=== PATIENT | male | born 1995 ===

== ENCOUNTER 2018-11-15 17:10 | Emergency (ER) | payer OTHER ==
[2018-11-15 17:37] VITALS: BP 125/72; PULSE 60; RESP 18; TEMP 98; O2SAT 99
[2018-11-15] MEDS ORDERED: Naproxen 550 mg Tab PO STA (17:45)
[2018-11-15] MEDS ORDERED: Naproxen 550 mg Tab PO ONE (18:14)
--- NOTE | 2018-11-15 18:17 | C.PDOC ---
History Of Present Illness Pt injured his left middle finger while using a hammer at work. Time Seen by Provider: 11/15/18 17:39 Chief Complaint (Nursing): Finger,Hand,&Wrist History Per: Patient Onset/Duration Of Symptoms: Sudden Onset (Just [employer]) Current Symptoms Are (Timing): Still Present Quality: "Pain" Severity: Moderate Hands/Wrist (Pic): 1 - pain/swelling Exacerbating Factor(s): Movement Additional History Per: Prior Records Past Medical History Reviewed: Historical Data, Nursing Documentation, Vital Signs Vital Signs: Last Vital Signs Temp 98 F 11/15/18 17:36 Pulse 60 11/15/18 17:36 Resp 18 11/15/18 17:36 BP 125/72 11/15/18 17:36 Pulse Ox 99 11/15/18 17:36 - Medical History PMH: No Chronic Diseases Family History: States: Unknown Family Hx - Social History Hx Alcohol Use: No Hx Substance Use: No - Immunization History Hx Tetanus Toxoid Vaccination: No Hx Influenza Vaccination: No Hx Pneumococcal Vaccination: No Review Of Systems Except As Marked, All Systems Reviewed And Found Negative. Constitutional: Negative for: Fever, Weakness Gastrointestinal: Negative for: Nausea Musculoskeletal: Positive for: Hand Pain (left middle finger). Negative for: Neck Pain, Arm Pain Skin: Negative for: Rash Neurological: Negative for: Weakness, Numbness Physical Exam - Physical Exam Appears: Non-toxic, No Acute Distress Skin: Normal Color, Warm, Dry Head: Atraumatic, Normacephalic Neck: Normal ROM, Supple Extremity: Tenderness (Left middle finger), Capillary Refill (wnl, less than 1 second in left middle finger), Swelling (left middle finger) Pulses: Left Radial: Normal Neurological/Psych: Oriented x3, Normal Motor, Normal Sensation ED Course And Treatment O2 Sat by Pulse Oximetry: 99 Pulse Ox Interpretation: Normal - Other Rad Left middle finger x-rays X-Ray: Interpreted by Me, Viewed By Me Interpretation: Fracture of middle phalanx. Orthopedic Procedure: Splint Other:: Finger splint Location: Left, Finger (middle) Consent obtained: Verbal Performed by: Attending Physician Diagnosis: Fracture Type: Closed Location: Left Bone: Phalanx, Middle Other:: Naproxen Capillary refill: Normal Distal Sensation: Normal Distal Motor Function: Normal Capillary Refill: Normal Compartment: Normal Distal Sensation: Normal Distal Motor Function: Normal Patient tolerated procedure: Well Disposition Counseled Patient/Family Regarding: Studies Performed, Diagnosis, Need For Followup, Rx Given - Disposition Referrals: Angel Luis Guerrier MD [Staff Provider] - Disposition: HOME/ ROUTINE Disposition Time: 18:23 Condition: STABLE Additional Instructions: Keep your finger in the splint provided. Follow up with an Hand specialist within 1 week for further evaluation and treatment. Return to the ER if you deve lop severe pain, numbness, blue or pale color to finger, worsening of symptoms or if you have any other concerns. Prescriptions: Naproxen [Naprosyn] 1 tab PO BID PRN #25 tab PRN Reason: Pain Instructions: Finger Fracture (DC) Forms: [facility] [facility] (Persian) - Clinical Impression Clinical Impression: Fracture of middle phalanx of left middle finger
--- NOTE | 2018-11-15 18:55 | RAD ---
Date of service: 11/15/2018 PROCEDURE: Left middle finger radiographs. HISTORY: hit with hammer? at work today COMPARISON: None available. TECHNIQUE: AP radiograph of the left hand, as well as spot oblique and lateral images of index finger were obtained. 4 views obtained. FINDINGS: LEFT MIDDLE FINGER: Comminuted mildly displaced fracture deformity of the mid aspect 3rd middle phalanx. Remainder of the left hand (as seen on the AP view) is grossly unremarkable. JOINTS: No dislocation. SOFT TISSUES: Soft tissue swelling. OTHER FINDINGS: None. IMPRESSION: Comminuted mildly displaced fracture deformity of the mid aspect 3rd middle phalanx. Associated soft tissue swelling.
== END 2018-11-15 19:02 | disposition home or self-care (01) ==
LOC: C.ER 17:10
DX: S62.623A Displaced fracture of middle phalanx of left middle finger, initial encounter for closed fracture (principal); X58.XXXA Exposure to other specified factors, initial encounter; Y92.89 Other specified places as the place of occurrence of the external cause; Y99.0 Civilian activity done for income or pay